=== PATIENT | female | born 1980 | race Caucasian/White ===

== ENCOUNTER 2020-06-25 14:43 | Inpatient (IN) | payer OTHER ==
[~2020-06-25] VITALS: Ht 157.5 cm; Wt 65.9 kg
[2020-06-25] VITALS (9 sets, daily range): BP systolic 98–110; BP diastolic 50–67; PULSE 69–82; TEMP 98–99
[~2020-06-25 14:43] MED LIST: MOTRIN 600600 MG/TAB PO; PERCOCET 325 MG1 TA2 PO; PRENATAL1 TA1 PO; TUMS ULTRA ST1000 MG PO
[2020-06-25 17:28] LABS: BASO % 0.2 % (0.0-2.0); GRAN # 4.8 (1.4-6.5); GRAN % 83.4 % (42.2-75.2); LYMPH # 0.8 (1.2-3.4); LYMPH % 13.3 % (20.0-51.0); MEAN CELL VOLUME 90 fl (80.0-100.0); MEAN CORPUSCULAR HGB CONC 32 g/dl (33.0-37.0); MEAN PLATELET VOLUME 12.5 fl (7.4-10.4); MONO # 0.2 (0.1-0.6); MONO % 2.6 % (1.7-9.3); RED BLOOD COUNT 2.71 M/mm3 (4.10-5.30); REDCELL DISTRIBUTION WIDTH-CV 12.4 % (11.5-14.5)
[2020-06-25 17:32] LABS: ALBUMIN 3.6 gm/dL (3.5-5.0); BILIRUBIN,TOTAL 0.6 mg/dL (0.0-1.0); CALCIUM 8.4 mg/dL (8.4-10.2); CREATININE, serum 0.71 (0.52-1.25); POTASSIUM 3.9 mmol/L (3.4-5.0); TOTAL PROTEIN 6.3 gm/dL (6.4-8.2)
[2020-06-25 17:37] LABS: HEMATOCRIT 24.5 % (37.0-47.0); HEMOGLOBIN 7.8 g/dl (12.5-16.0); MEAN CORPUSCULAR HEMOGLOBIN 29 pg (27.0-31.0)
[2020-06-25 17:38] LABS: PLATELET COUNT 9 K/mm3 (130-400)
[2020-06-25 18:16] LABS: BASO % 0.4 % (0.0-2.0); GRAN # 6.2 (1.4-6.5); GRAN % 86.7 % (42.2-75.2); LYMPH # 0.6 (1.2-3.4); LYMPH % 8.5 % (20.0-51.0); MEAN CELL VOLUME 90 fl (80.0-100.0); MEAN CORPUSCULAR HGB CONC 32 g/dl (33.0-37.0); MEAN PLATELET VOLUME 10.3 fl (7.4-10.4); MONO # 0.3 (0.1-0.6); MONO % 3.8 % (1.7-9.3); RED BLOOD COUNT 2.09 M/mm3 (4.10-5.30); REDCELL DISTRIBUTION WIDTH-CV 12.5 % (11.5-14.5)
[2020-06-25 18:19] LABS: HEMATOCRIT 18.9 % (37.0-47.0); MEAN CORPUSCULAR HEMOGLOBIN 29 pg (27.0-31.0)
[2020-06-25 18:20] LABS: PLATELET COUNT 253 K/mm3 (130-400)
--- NOTE | 2020-06-25 19:34 | NUR ---
To unit via bed, accompanied by MARKETING COMMUNICATIONS ASSOCIATE and SCREW MACHINE SET UP OPERATOR. Oriented to room, plan of care. Denies discomfort
[2020-06-26] VITALS (10 sets, daily range): BP systolic 96–104; BP diastolic 42–68; PULSE 68–82; TEMP 97.9–98.9
[2020-06-26 09:14] LABS: BASO % 0.5 % (0.0-2.0); EOS # 0.1 (0.0-0.7); EOS % 1.6 % (0-4.0); GRAN % 70.9 % (42.2-75.2); LYMPH # 1.2 (1.2-3.4); LYMPH % 21.3 % (20.0-51.0); MEAN CELL VOLUME 88 fl (80.0-100.0); MEAN CORPUSCULAR HGB CONC 32 g/dl (33.0-37.0); MONO # 0.3 (0.1-0.6); MONO % 5.2 % (1.7-9.3); PLATELET COUNT 226 K/mm3 (130-400); RED BLOOD COUNT 3.16 M/mm3 (4.10-5.30); REDCELL DISTRIBUTION WIDTH-CV 13.3 % (11.5-14.5)
[2020-06-26 09:16] LABS: HEMATOCRIT 27.7 % (37.0-47.0); HEMOGLOBIN 8.9 g/dl (12.5-16.0); MEAN CORPUSCULAR HEMOGLOBIN 28 pg (27.0-31.0)
--- NOTE | 2020-06-26 09:31 | NUR ---
Initial visit; Patient thanked Warranty Coordinator for looking in on her and offering God's blessings and encouragement.
[2020-06-26] MEDS ORDERED: MOTRIN 600600 MG/TAB PO (10:45)
--- NOTE | 2020-06-26 11:24 | NUR ---
1108 INT REMOVED AT THIS TIME. PT TOLERATED WELL. DISCHARGE INFO GIVEN. PT GATHERING BELONGINGS. 1125 PT ESCORTED OFF UNIT. EMILY MET AT PT ADMISSIONS ENTRY.
== END 2020-06-26 11:20 | disposition home or self-care (01) | DRG 770 ==
LOC: COL.ER 14:43 → OB 19:13
PROVIDERS: Nurse Practitioner; ADMIT Obstetrics & Gynecology
PROC: 10A07ZZ Abortion of Products of Conception, Via Natural or Artificial Opening (ICD-10-PCS; principal; 2020-06-25 19:19)
DX: O02.1 Missed abortion (principal); N93.9 Abnormal uterine and vaginal bleeding, unspecified; O99.02 Anemia complicating childbirth; D64.9 Anemia, unspecified
CPT/HCPCS: OP; J1885; J2405; J2704; J3010; J7030; P9016